=== PATIENT | female | born 1995 | race Two or more races ===

== ENCOUNTER 2025-03-17 18:56 | Emergency (ER) | payer SELFPAY ==
[~2025-03-17] VITALS: Ht 162.6 cm; Wt 84.0 kg
[2025-03-17 19:47] VITALS: O2SAT 99
[2025-03-17] MEDS ORDERED: TENOFOVIR 300MG TABLET PO ONE (20:30)
[2025-03-17] MEDS: TENOFOVIR PO SCH (21:50)
[2025-03-17] MEDS: EMTRICITABINE PO SCH (21:50)
[2025-03-17] MEDS: RALTEGRAVIR 400 MG TABLET PO SCH (21:50)
[2025-03-17] MEDS ORDERED: RALT400T MT (21:53)
[2025-03-17] MEDS ORDERED: EMTR1TAB11 MT (21:54)
[2025-03-17 21:57] VITALS: BP 132/92; PULSE 71; RESP 18; TEMP 36.5; O2SAT 100
[2025-03-17 22:32] LABS: HEPATITIS C AB NON REACTIVE (Neg) (Negative)
== END 2025-03-17 22:14 | disposition home or self-care (01) ==
LOC: ER 18:56
DX: T14.8XXA Other injury of unspecified body region, initial encounter (principal); W46.0XXA Contact with hypodermic needle, initial encounter; Y93.89 Activity, other specified; Y92.89 Other specified places as the place of occurrence of the external cause; Y99.8 Other external cause status
CPT/HCPCS: 86706; 36415; 86705; 99283; Z7610